=== PATIENT | female | born 1955 | race Caucasian/White ===

== ENCOUNTER 2016-03-14 09:31 | Inpatient (IN) | payer MEDICAID, OTHER ==
[2016-03-14] MEDS: NS 0.9% 1000 ML* 2,000 ML IV ONE ×5 (10:00→15:31)
[2016-03-14 10:20] LABS: Hematocrit 35 % (35-47); Mean Corpuscular HGB Conc 34 g/dl (31-36); Mean Corpuscular Hemoglobin 32 pg (27-31); Mean Corpuscular Volume 92 fL (80-97); Mean Platelet Volume 8 um3 (7.4-10.4); Red Blood Count 3.79 10^6/ul (4.0-5.4); Red Cell Distribution Width 14 % (10.5-15); White Blood Count 29.8 10^3/ul (3.5-10.8)
[2016-03-14 10:26] LABS: Add Diff/Slide Review? Slide Review Added; Comments Flag Yes
--- NOTE | 2016-03-14 10:38 | RAD ---
HISTORY: Shortness of breath COMPARISONS: None VIEWS: Single frontal view of the chest FINDINGS: CARDIOMEDIASTINAL SILHOUETTE: The cardiomediastinal silhouette is normal. SADIQ: The sadiq are normal. PLEURA: The costophrenic angles are sharp. No pleural abnormalities are noted. LUNG PARENCHYMA: The lungs are clear. ABDOMEN: The upper abdomen is clear. There is no subphrenic gas. BONES AND SOFT TISSUES: No bone or soft tissue abnormalities are noted. OTHER: None. IMPRESSION: NO ACTIVE CARDIOPULMONARY DISEASE.
[2016-03-14 10:39] LABS: Troponin I 0.13 ng/mL (<0.04)
[2016-03-14 10:40] LABS: Albumin 2.3 g/dL (3.2-5.2); BUN/Creatinine Ratio 30.5 (8-20); Calcium 7.9 mg/dL (8.6-10.3); EGFR African American 20.2 (>60); EGFR Non-African American 15.7 (>60); Potassium 3.7 mmol/L (3.5-5.0); Total Bilirubin 1.7 mg/dL (0.2-1.0); Total Protein 5.3 g/dL (6.4-8.9)
[2016-03-14] MEDS ORDERED: Piperac/Tazob 3.375 gm in NS* 3.375 GM/100 ML BAG IVPB ONE (10:42)
[2016-03-14] MEDS ORDERED: Aspirin EC TAB* 325 MG PO ONE (10:45)
[2016-03-14 10:47] LABS: Immature Granulocytes 19 % (0-9); Myelocytes % 1 % (0-1); Neutrophil % 77 % (38-83); Toxic Granulation 1+
--- NOTE | 2016-03-14 11:10 | ED ---
Lower Extremity - HPI Summary HPI Summary: Patient presents with right leg pain and swelling. 6 days ago she suffered an injury to the knee when she just bent down and felt a pop. She presented to [facility] where an x-ray was negative for bony abnormality, and she was referred to the orthopedics, who she is scheduled to see today at 11. She began using two newly prescribed medications she received a week ago from her PCP for "hot flashes and to sleep". She has been taking Effexor 150mg and 200mg of Trazadone at bedtime. She finds it hard to get up, so she hasn't really been moving much due to her knee and the medication. She has not been eating or drinking much since her boyfriend is out of town. Her mother became concerned for a blood clot when she checked on her today because her right leg is swollen from the groin through the foot, with pain. She feels mildly short of breath without CP, HARDY, N/ V/D or abdominal pain. No fever, chills, N/T. She is deaf and uses hearing aids at baseline. - History of Current Complaint Chief Complaint: EDExtremityLower Stated Complaint: RT KNEE PAIN Time Seen by Provider: 03/14/16 09:43 Hx Obtained From: Patient, Family/Crown And [employer] Technician Mechanism Of Injury: Fall From A Standing Position Onset of Pain: Immediate Onset/Duration: Days - 6 Severity Initially: Severe Severity Currently: Severe Pain Intensity: 10 Timing: Constant Location: Is Discrete @ - RLE Character Of Pain: Aching, Stiffness, Burning Associated Signs And Symptoms: Positive: Swelling, Knee Pain Aggravating Factor(s): Movement Alleviating Factor(s): Nothing Able to Bear Weight: No - Allergies/Home Medications Allergies/Adverse Reactions: Allergies Allergy/AdvReac Type Severity Reaction Status Date / Time No Known Allergies Allergy Verified 10/31/15 15:39 Home Medications: Home Medications Venlafaxine ER (NF) [Effexor ER (NF)] 150 mg PO DAILY 03/14/16 [History Confirmed 03/14/16] traZODone TAB* [Desyrel TAB*] 200 mg PO BEDTIME 03/14/16 [History Confirmed 02/16] PMH/Surg Hx/FS Hx/Imm Hx Musculoskeletal History: Denies: Hx Rheumatoid Arthritis, Hx Osteoporosis EENT History: Reports: Hx Deafness Psychiatric History: Reports: Hx Depression - Cancer History Hx Chemotherapy: No Hx Radiation Therapy: No - Surgical History Surgery Procedure, Year, and Place: , CHOLECYSTECTOMY Infectious Disease History: No Infectious Disease History: Denies: Traveled Outside the [place] in Last 30 Days - Family History Known Family History: Positive: None Family History: no known cardio-vascular issues in family - Social History Occupation: Unemployed Lives: With Family Alcohol Use: None Substance Use Type: Reports: None Hx Tobacco Use: No Smoking Status (MU): Never Smoked Tobacco Review of Systems Negative: Fever, Chills Negative: Sore Throat, Ear Ache Negative: Chest Pain Positive: Shortness Of Breath. Negative: Cough Negative: Abdominal Pain, Vomiting, Diarrhea, Nausea Positive: Myalgia, Edema - RLE Negative: Headache All Other Systems Reviewed And Are Negative: Yes Physical Exam Triage Information Reviewed: Yes Vital Signs On Initial Exam: Initial Vitals Temp Pulse Resp BP Pulse Ox 98.6 F 126 18 101/67 98 03/14/16 09:50 03/14/16 09:50 03/14/16 09:50 03/14/16 09:50 03/14/16 09:50 Vital Signs Reviewed: Yes Appearance: Positive: Well-Nourished, Ill-Appearing, Pain Distress Skin: Positive: Warm, Skin Color Reflects Adequate Perfusion, Dry, Tender - TTP right thigh and knee, Soft. Negative: Erythema @ Head/Face: Positive: Normal Head/Face Inspection Eyes: Positive: EOMI, JAKE, Conjunctiva Clear ENT: Negative: Hearing grossly normal - patient is deaf and uses hearing aids Neck: Positive: Supple, Nontender, No Lymphadenopathy Respiratory/Lung Sounds: Positive: Clear to Auscultation, Breath Sounds Present. Negative: Rales, Rhonchi, Wheezes Cardiovascular: Positive: Tachycardia. Negative: Pulses are Symmetrical in both Upper and Lower Extremities - Right femoral, PT and DP pulses diminshed but present Abdomen Description: Positive: Nontender, Soft. Negative: CVA Tenderness (R), CVA Tenderness (L) Bowel Sounds: Positive: Present Musculoskeletal: Positive: Limited @ - any movement of the RLE causes extreme pain, Pain @ - TTP right groin, thigh, and knee. Minimal tenderness of calf, ankle and foot., Edema Right - moderate edema from right groin distally to foot. Negative: Griselda Sign Left, Griselda Sign Right Neurological: Positive: Sensory/Motor Intact, Alert, Oriented to Person Place, Time, NV Bundle Intact Distally, Unable to Assess Gait Psychiatric: Positive: Affect/Mood Appropriate AVPU Assessment: Alert - patient seems drowsy but is not somnolent - [place] Coma Scale Coma Scale Total: 15 Diagnostics - Vital Signs Vital Signs Temp Pulse Resp BP Pulse Ox 03/14/16 10:41 98.6 F 125 16 119/59 100 03/14/16 10:08 98.6 F 130 16 107/56 99 03/14/16 09:50 98.6 F 126 18 101/67 98 - Laboratory Lab Results: Lab Results 03/14/16 03/14/16 03/14/16 Range/Units 10:00 10:00 10:00 WBC 29.8 H (3.5-10.8) 10^3/ul RBC 3.79 L (4.0-5.4) 10^6/ul Hgb 12.0 (12.0-16.0) g/dl Hct 35 (35-47) % MCV 92 (80-97) fL MCH 32 H (27-31) pg MCHC 34 (31-36) g/dl RDW 14 (10.5-15) % Plt Count 320 (150-450) 10^3/ul MPV 8 (7.4-10.4) um3 Immature Gran % (Auto) 19 H (0-9) % Neut % (Auto) 96.3 H (38-83) % Lymph % (Auto) 1.1 L (25-47) % Converse % (Auto) 1.5 (1-9) % Eos % (Auto) 0.9 (0-6) % Baso % (Auto) 0.2 (0-2) % Absolute Neuts (auto) 28.7 H (1.5-7.7) 10^3/ul Absolute Lymphs (auto) 0.3 L (1.0-4.8) 10^3/ul Absolute Monos (auto) 0.4 (0-0.8) 10^3/ul Absolute Eos (auto) 0.3 (0-0.6) 10^3/ul Absolute Basos (auto) 0.1 (0-0.2) 10^3/ul Absolute Nucleated RBC 0 10^3/ul Neutrophils % 77 (38-83) % Band Neutrophils % 18 H (0-8) % Monocytes % 4 (0-13) % Myelocytes % 1 (0-1) % Nucleated RBC % 0 Toxic Granulation 1+ Normal RBC Morphology Not Reportable D-Dimer, Quantitative 364 H (Less Than 230) ng/mL Sodium 129 L (133-145) mmol/L Potassium 3.7 (3.5-5.0) mmol/L Chloride 96 L (101-111) mmol/L Carbon Dioxide 20 L (22-32) mmol/L Anion Gap 13 H (2-11) mmol/L BUN 93 H (6-24) mg/dL Creatinine 3.05 H (0.51-0.95) mg/dL Est GFR ( Amer) 20.2 (>60) Est GFR (Non-Af Amer) 15.7 (>60) BUN/Creatinine Ratio 30.5 H (8-20) Glucose 107 H (70-100) mg/dL Lactic Acid (0.5-2.0) mmol/L Calcium 7.9 L (8.6-10.3) mg/dL Total Bilirubin 1.70 H (0.2-1.0) mg/dL AST 74 H (13-39) U/L ALT 55 H (7-52) U/L Alkaline Phosphatase 170 H (34-104) U/L Troponin I 0.13 H* (<0.04) ng/mL Total Protein 5.3 L (6.4-8.9) g/dL Albumin 2.3 L (3.2-5.2) g/dL Globulin 3.0 (2-4) g/dL Albumin/Globulin Ratio 0.8 L (1-3) 03/14/16 Range/Units 10:00 WBC (3.5-10.8) 10^3/ul RBC (4.0-5.4) 10^6/ul Hgb (12.0-16.0) g/dl Hct (35-47) % MCV (80-97) fL MCH (27-31) pg MCHC (31-36) g/dl RDW (10.5-15) % Plt Count (150-450) 10^3/ul MPV (7.4-10.4) um3 Immature Gran % (Auto) (0-9) % Neut % (Auto) (38-83) % Lymph % (Auto) (25-47) % Converse % (Auto) (1-9) % Eos % (Auto) (0-6) % Baso % (Auto) (0-2) % Absolute Neuts (auto) (1.5-7.7) 10^3/ul Absolute Lymphs (auto) (1.0-4.8) 10^3/ul Absolute Monos (auto) (0-0.8) 10^3/ul Absolute Eos (auto) (0-0.6) 10^3/ul Absolute Basos (auto) (0-0.2) 10^3/ul Absolute Nucleated RBC 10^3/ul Neutrophils % (38-83) % Band Neutrophils % (0-8) % Monocytes % (0-13) % Myelocytes % (0-1) % Nucleated RBC % Toxic Granulation Normal RBC Morphology D-Dimer, Quantitative (Less Than 230) ng/mL Sodium (133-145) mmol/L Potassium (3.5-5.0) mmol/L Chloride (101-111) mmol/L Carbon Dioxide (22-32) mmol/L Anion Gap (2-11) mmol/L BUN (6-24) mg/dL Creatinine (0.51-0.95) mg/dL Est GFR ( Amer) (>60) Est GFR (Non-Af Amer) (>60) BUN/Creatinine Ratio (8-20) Glucose (70-100) mg/dL Lactic Acid 1.9 (0.5-2.0) mmol/L Calcium (8.6-10.3) mg/dL Total Bilirubin (0.2-1.0) mg/dL AST (13-39) U/L ALT (7-52) U/L Alkaline Phosphatase (34-104) U/L Troponin I (<0.04) ng/mL Total Protein (6.4-8.9) g/dL Albumin (3.2-5.2) g/dL Globulin (2-4) g/dL Albumin/Globulin Ratio (1-3) Result Diagrams: 03/14/16 10:00 03/14/16 10:00 Lab Statement: Any lab studies that have been ordered have been reviewed, and results considered in the medical decision making process. - Radiology No standard instances Xray Interpretation: No Acute Changes Radiology Interpretation Completed By: Radiologist - Ultrasound No standard instances Ultrasound Interpretation: Positive (See Comments) - right popliteal vein and profunda femoris vein are noncompressible suggestive of nonocclusive thrombus, possibly chronic Ultrasound Interpretation Completed By: Radiologist - EKG No standard instances Cardiac Rate: Tachycardia EKG Rhythm: Sinus Rhythm ST Segment: Normal Ectopy: None Re-Evaluation - Re-Evaluation First Eval Re-Evaluation Time: 12:05 Change: Unchanged - Patient re-examined which reveals an area of redness on right inner/posterior groin and labia that is painful and swollen without injury. This was not visible on initial exam and was not mentioned a source of pain. She has not been sexually active for 1-2 weeks and has not suffered any truama. She does shave her pubis and groin but does not report any known ingrown hair. There is not a distinct "head" to the swelling and there is only mild erythema. She is non-tender over her right buttock, SI joint or iliac crest. Lower Extremity Course/Dx - Course Course Of Treatment: Patient's case was discussed with Dr. Van throughout her time in the emergency department. The hopitalist, Dr. Chavez, was called for consultation when the lab work returned askew. It was decided the hospitalist service would see the patient and a CT of the lower extremity was order. - Diagnoses Differential Diagnosis/HQI/PQRI: Positive: Arthritis, Bursitis, Cellulitis, Compartment Syndrome, DVT, Infection, Septic Arthritis, Sprain, Strain Provider Diagnoses: Swelling of right lower extremity - Physician Notifications Discussed Care of Patient With: Dr. Chavez, [facility] Time Discussed With Above Provider: 11:56 Instructed by Provider To: Admit As Inpatient Discharge - Discharge Plan Condition: Fair Disposition: ADMITTED TO [facility]
--- NOTE | 2016-03-14 11:36 | RAD ---
HISTORY: Pain and edema COMPARISONS: None relevant TECHNIQUE: Multiple transverse and longitudinal ultrasound images were obtained of the right lower extremity from the level of the common femoral vein inferiorly through to the infrapopliteal veins using grayscale, color Doppler, and spectral Doppler imaging with and without compression and with augmentation. Comparison images were obtained of the contralateral common femoral vein. FINDINGS: VEINS: The right popliteal vein and profunda femoris vein are partially compressible suggestive of nonocclusive, possibly chronic thrombus. The remainder of the venous system of the right lower extremity is compressible throughout its course, with normal flow on color Doppler imaging and normal response to augmentation on spectral Doppler imaging. SOFT TISSUES: There is a 4 x 0.7 x 2.2 cm fluid collection of the popliteal fossa OTHER FINDINGS: None. IMPRESSION: 1. THE RIGHT POPLITEAL VEIN AND PROFUNDA FEMORIS VEIN ARE NONCOMPRESSIBLE SUGGESTIVE OF NONOCCLUSIVE THROMBUS, POSSIBLY CHRONIC. 2. BATISTA'S CYST
--- NOTE | 2016-03-14 11:40 | RAD ---
Indication: Injury to RIGHT leg last week at the level of the knee. Now entire leg swollen. Redness at the RIGHT groin. Shortness of breath. Diminished femoral pulses. Comparison: RIGHT lower extremity venous ultrasound of the same date. Technique: RIGHT lower extremity arterial ultrasound from the common femoral artery proximally through the calf arteries. Report: Patent RIGHT common femoral, profunda femoral, proximal, mid, and distal segments of the superficial femoral, popliteal, tibioperoneal trunk, anterior tibial, posterior tibial, and peroneal arteries with triphasic waveforms and normal range peak systolic velocities throughout. No aneurysm, pseudoaneurysm, or loculated fluid collection evident at the RIGHT groin. IMPRESSION: Negative arterial ultrasound RIGHT lower extremity.
[2016-03-14] MEDS ORDERED: Vancomycin(*) 1,000 MG in NS 0.9% 250 ML* 250 ML IVPB ONE (12:27)
[2016-03-14] MEDS ORDERED: Ondansetron INJ* 2 MG/ML VIAL IV PRN (12:36)
[2016-03-14 12:49] LABS: C Reactive Protein 399.48 mg/L (< 5.00)
--- NOTE | 2016-03-14 13:09 | RAD ---
Indication: Right lower extremity pain and swelling, severe sepsis. CT of the abdomen and pelvis was performed without oral or IV contrast administration. Coronal and sagittal reconstructed images were obtained. Lung bases demonstrate no pleural fluid, nodules or masses. Heart is normal size without pericardial effusion. Liver is normal in size. No focal lesions or intrahepatic ductal dilatation is noted. Patient status post cholecystectomy. The pancreas demonstrates no mass or pancreatic ductal dilatation. The spleen is normal in size. No adrenal lesions are noted. The kidneys demonstrate no hydronephrosis. No retroperitoneal lymphadenopathy is noted. No dilated loops of bowel are noted. The colon is filled with stool. The urinary bladder is unremarkable. No retroperitoneal adenopathy is noted. No retroperitoneal hematoma is noted. There is enlargement of the right vastus lateralis muscle. Intramuscular hematoma is not excluded although the entire length is not There is fluid surrounding the right gluteus medius muscle. Inflammatory changes cannot totally be excluded however. Specifically the colon demonstrates no definite evidence of diverticulitis. IMPRESSION: ENLARGEMENT OF THE RIGHT VASTUS LATERALIS MUSCLE WITH FLUID SURROUNDING THE RIGHT GLUTEUS MUSCLES. INFLAMMATORY CHANGES OR INTRAMUSCULAR HEMATOMA SHOULD BE CONSIDERED. NO INTRA-ABDOMINAL MASSES ARE IDENTIFIED.
--- NOTE | 2016-03-14 13:19 | RAD ---
Indication: Right lower extremity swelling, redness and pain. CT of the lower extremity was obtained without contrast. Coronal and sagittal reconstructed images were obtained. There is fluid superficial to the gluteus medius muscle in the right flank. This extends into the vastus lateralis muscle and likely the vastus intermedius muscle. There is also enlargement of the left abductor brevis muscle. Fluid surrounds the gracilis muscle and the posterior thigh. This extends into the knee. Moderate-sized suprapatellar joint effusion is noted. The muscle appears to be enlarged with heterogeneous low density. This may represent hematoma although inflammatory changes are not excluded. No evidence of fascial air is noted to suggest necrotizing fasciitis. IMPRESSION: Enlargement with fluid surrounding the gluteus medius muscle. The vastus intermedius muscle and vastus lateralis muscle are enlarged with heterogeneous low density. Fluid is noted surrounding the gracilis muscle and the abductor muscles. Differential diagnosis includes intramuscular hematoma versus inflammatory changes. No evidence of fascial air is noted to suggest necrotizing fasciitis.
--- NOTE | 2016-03-14 13:31 | RAD ---
Indication: Sepsis. Single frontal view of the chest performed at 1319 hours was reviewed. Comparison is made with previous exam dated earlier the same day. No mediastinal shift is noted. Heart is of normal size and configuration. Lung maria appear clear. IMPRESSION: NO ACTIVE CARDIOPULMONARY DISEASE IS NOTED.
[2016-03-14] MEDS ORDERED: Acetaminophen TAB* 325 MG PO PRN (13:35)
[2016-03-14] MEDS ORDERED: CEFTAZIDIME 1 GM IVPB SCH ×2 (14:00)
[2016-03-14] MEDS ORDERED: Cefepime(*) 1 GM in NS 0.9% 50 ML* 50 ML IVPB SCH (14:00)
[2016-03-14] MEDS ORDERED: Morphine INJ* 4 MG/ML 1 ML CARPUJECT IV PRN (14:12)
[2016-03-14] MEDS ORDERED: Clindamycin 600 MG IVPREMIX(* 600 MG/50 ML SDV IV ONE (14:13)
--- NOTE | 2016-03-14 15:46 | TRS ---
DATE OF ADMISSION: 03/14/2016. DATE OF TRANSFER: 03/14/2016. ATTENDING PHYSICIAN: Dr. Telly Chavez * (dictation provided by Teressa Lechuga NP ). CHIEF COMPLAINT: Right lower extremity pain. HISTORY OF PRESENT ILLNESS: Ms. Contreras is a 60-year-old female with no significant past medical history other than being hard of hearing who presents today to the hospital with concern for altered mental status and pain in her right lower extremity. Per the report, Ms. Contreras was at work approximately six days ago when she squatted down and felt a tear in her leg. She thought that she had injured her knee. She had significant pain in the leg and ultimately went to [facility] where an x-ray was performed that showed no acute injury. In addition to this, the patient was recently started on Effexor and Trazodone for hot flashes and anxiety. Her doses were quite high at 150 mg p.o. daily for the Venlafaxine and Trazodone 200 mg p.o. at bedtime. The patient states that she was taking both of these medications at night to help her sleep. She reports that she has been sleeping much more than usual. She does not report any fevers. Her mother has been checking on her daily out of concern for the pain in her leg. She saw her last night and she seemed to be doing okay, and when she came in to visit her this morning, the patient was very lethargic and was very difficult to arouse and therefore she brought her to the emergency room for evaluation. In the emergency room, Ms. Contreras was significantly toxic. Her temperature is normal, her heart rate is running in the 130s, her O2 saturation is 94 percent on room air, her respiratory rate is running in the 20s. Laboratory values show a white blood cell count of 29.8 and the bandemia of 18. She has an acute kidney injury with a BUN of 93 and a creatinine of 3.05. Her troponin is 0.13. She has a C-reactive protein of 399.48 and a procalcitonin of 11.0. The patient was continuing to complain of right leg pain, most specifically in the knee; however, on evaluation it was noted that the patient has swelling throughout the right leg, but most specifically in the right upper thigh. The patient went on for a venous Doppler study and a lower extremity arterial duplex which failed to show any clot. When her labs showed severe sepsis, she went on for a lower extremity CT which showed the follow: "Enlargement with fluid surrounding the gluteus medius muscle. The vastus intermedius muscle and vastus lateralis muscle are enlarged with heterogeneous low density. Fluid is noted surrounding the gracilis muscle and the abductor muscles. Differential diagnosis includes intramuscular hematoma versus inflammatory changes. No evidence of fascial air is noted to suggest necrotizing fasciitis." Ms. Contreras was admitted to the Intensive Care Unit. She has received 4 liters of IV fluid and boluses continue. She was given Vancomycin, Zosyn, and Clindamycin. Blood cultures were drawn. I will note that her lactic acid in only 1.9. The case was reviewed with Dr. Michael from the [facility] and despite the fact that no necrotizing fasciitis or air is seen on the CT scan, there is significant concern for the severity of the patient's illness and multisystem organ failure. Our concern is that as we hydrate the patient, she will develop compartment syndrome in the right lower extremity and possibly necrotizing fasciitis. Patient would benefit from a higher level of care where surgical expertise would be available if required. This case has been reviewed with Dr. Sheffield, who is an [facility] at [facility] who will be accepting the patient in transfer now. At the time of transfer, Ms. Contreras is stable. Her blood pressure is 135/70 with a heart rate of 129, respiratory rate of 21, O2 saturation 94 percent on room air. She is fluids wide open and will be maintained on that through her transfer. DISPOSITION: To [facility]. Approximately 90 minutes were spent in the transfer of this patient and more than half that time spent with her and her family at the bedside reviewing the events leading up to this hospitalization, performing the physical examination and reviewing my plan of care. TERESSA LECHUGA NP CC: Dr. Alcantara * [id number]/[facility] #: [id number] MARTHA
[2016-03-14 17:37] LABS: Urine Bacteria 1+ (Absent); Urine Bilirubin Negative (Negative); Urine Glucose Negative (Negative); Urine Nitrite Negative (Negative)
[2016-03-14 17:48] VITALS: BP 107/49
[2016-03-15] MEDS ORDERED: Vancomycin Random Level* NOTE FOLLOW UP ONE (06:00)
--- NOTE | 2016-06-27 03:46 | HP ---
HOSPITAL MEDICINE HISTORY AND PHYSICAL: DATE OF ADMISSION: 03/14/16 ATTENDING PHYSICIAN: Dr. Flo Chavez * (dictation provided by Teressa Lechuga NP). CHIEF COMPLAINT: Right lower extremity pain. HISTORY OF PRESENT ILLNESS: Ms. Contreras is a 60-year-old female with no significant past medical history, who presented to the hospital on 03/14/16 with concern for right lower extremity pain. Per the report, Ms. Contreras was at work approximately 6 days ago when she squatted down and felt a tear in her right leg. She thought she had injured her knee. She had significant pain in the leg and ultimately, went to [facility] when an x-ray was performed that showed no acute injury. In addition to this, the patient was recently started on Effexor and trazodone for hot flashes and anxiety. Her doses were quite high at 150 mg p.o. daily for the venlafaxine and trazodone 200 mg p.o. bedtime. The patient states that she was taking both these medications at night to help her sleep. She reports that she has been sleeping much more than usual. She does not report any fevers. Her mother has been checking on her daily out of concern for the pain in her leg. She saw her last night. She seemed to be doing okay, but when she came to visit her this morning, the patient was very lethargic and difficult to arouse and therefore, she brought her to the emergency room for evaluation. In the emergency room, Ms. Contreras was significantly toxic. Her temperature is normal. Her heart rate is running into the 130s. Her O2 saturation is 94% on room air. Her respiratory rate is running in the 20s. Laboratory values show white blood cell count 29.8 with a bandemia of 18. She has an acute kidney injury with a BUN of 93 and a creatinine of 3.05. Her troponin is 0.13. She had a CRP of 399.48 and a procalcitonin of 11. The patient was continuing to complain of right leg pain, more specifically in the knee; however, on evaluation, it was noted that the patient had swelling throughout the right leg , more specifically in the right upper thigh. The patient had a venous Doppler study and a lower extremity arterial duplex which failed to show any clot. She had a lower extremity CT which showed "enlargement with fluid surrounding the gluteus medius muscle. The vastus intermedius muscle and the vastus lateralis muscle are enlarged with heterogeneous low density. Fluid is noted surrounding the gracilis muscle and the abductor muscles. Differential diagnosis includes intramuscular hematoma versus inflammatory changes. No evidence of fascial air is noted to suggest necrotizing fasciitis." PAST MEDICAL HISTORY: Left shoulder pain. PAST SURGICAL HISTORY: 1. . 2. Laparoscopic cholecystectomy. 3. Removal of cyst from her ovary. 4. Total abdominal hysterectomy. MEDICATIONS: 1. Trazodone p.r.n. 2. Venlafaxine p.r.n. ALLERGIES: No known drug allergies. FAMILY HISTORY: Positive for cervical and colon cancer in her mother. SOCIAL HISTORY: No report of alcohol, tobacco, or drug use. The patient lives alone. REVIEW OF SYSTEMS: Other than those mentioned above are all negative. A 14- point review was conducted. PHYSICAL EXAMINATION GENERAL: Ms. Contreras is lying in the bed. She appears drowsy, but she is oriented and arouses easily. VITAL SIGNS: Temperature on arrival 98.6, heart rate 126, respiratory rate 18, O2 saturation 98% on 2 L, blood pressure 101/67. LUNGS: Clear to auscultation bilaterally with no accessory muscle use and good aeration. HEART: S1, S2. No murmur, rub, or gallop, and regular. ABDOMEN: Soft, nontender with bowel sounds positive x4. EXTREMITIES: The patient has significant tenderness and erythema in her right thigh with limited range of motion. Left leg has no erythema or pain. NEURO: She is a bit drowsy, but again arouses easily. She answers all questions appropriately. She is oriented x3. She moves all extremities equally other than decreased movement on the right reported to be secondary to pain. There is no facial asymmetry or focal weakness. Extraocular movements are intact. SKIN: Intact. DIAGNOSTIC STUDIES/LAB DATA: WBC 29.8, hemoglobin 12.0, hematocrit 35, platelet count 320. D-dimer 364. Sodium 129, potassium 3.7, chloride 96, serum bicarbonate 20, BUN 93, creatinine 3.05, glucose 107. Troponin 0.13. CRP 399.48. Total bilirubin 1.7, AST 74, ALT 55, alk phos 170. Procalcitonin is 11. Urine shows 3+ leuk esterase, 3+ WBC's, 1+ bacteria. Chest x-ray shows no active cardiopulmonary disease. 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 The vastus intermedius muscle and vastus lateralis muscle are enlarged with heterogeneous low density. Fluid is noted surrounding the gracilis muscle and the abductor muscles. Differential diagnosis includes intramuscular hematoma versus inflammatory changes. No evidence of fascial air is noted to suggest necrotizing fasciitis." Abdomen and pelvis CT shows enlargement of the right vastus lateralis muscle with fluid surrounding the right gluteus muscle. Inflammatory changes or intramuscular hematoma should be considered. No intraabdominal masses are identified. Chest x-ray: "No active cardiopulmonary disease is identified." ASSESSMENT AND PLAN: Ms. Contreras is a 60-year-old female with no significant past medical history, who presented to the emergency room today with concern for significant right lower extremity pain, found to have severe sepsis. The patient will be admitted to the intensive care unit. She will receive multiple liters of IV fluids. She has received 4 L thus far and will continue with boluses. Vancomycin, Zosyn, and clindamycin have been ordered for antibiotic coverage. Blood cultures have been drawn. The case was discussed with Dr. Michael from [facility] and despite the fact that no necrotizing fasciitis or air is seen on the CT scan, there is significant concern for severity of the patient's illness and multisystem organ failure. Our concern is that as we rehydrate the patient, she will continue to develop compartment syndrome in the right lower extremity and possibly necrotizing fasciitis. I think that she would be best served by a higher level of care where surgical services would be available as needed. I will be calling shortly to find location for tertiary care for Ms. Contreras. In the meantime, she will be admitted to our intensive care unit for close monitoring and treatment pending transfer. DISPOSITION: To intensive care unit. TIME SPENT: Approximately 75 minutes was spent on the admission of this patient , more than half the time spent with her at the bedside reviewing the events leading up to this hospitalization, performing the physical examination, and reviewing the plan of care[place] [id number]/[facility] #: [id number] [facility] CENTERKeerthi
== END 2016-03-14 17:56 | disposition short-term general hospital (02) | DRG 720 ==
LOC: ED 09:31 → ICU 12:29
PROVIDERS: ADMIT Internal Medicine; ATTEND Internal Medicine
DX: A41.9 Sepsis, unspecified organism (principal); N17.9 Acute kidney failure, unspecified; F41.9 Anxiety disorder, unspecified; R65.20 Severe sepsis without septic shock; H91.90 Unspecified hearing loss, unspecified ear; F32.9 Major depressive disorder, single episode, unspecified; M79.81 Nontraumatic hematoma of soft tissue; M60.9 Myositis, unspecified
CPT/HCPCS: 36415; 71010; 71020; 74176; 80053; 81003; 81015; 82550; 83605; 84145; 84484; 85025; 85379; 86140; 87040; 87077; 87086; 87186; 93005; A9270-GY; J0713; J2270; J2543; J3370

== ENCOUNTER 2017-10-02 10:34 | Emergency (ER) | payer OTHER ==
[2017-10-02 11:40] VITALS: BP 139/69
--- NOTE | 2017-10-02 17:35 | ED ---
Throat Pain/Nasal Congestion - HPI Summary HPI Summary: Pt. is a 61 y.o female who presents to the ER for itchy, swollen eyes x 2-3 days. Pt. states she used a new mascara and she developed bilateral eye itching and swelling. Pt. states she tried taking an antihistamine with no improvement. She does not wear contact lenses. Associated symptoms of eye drainage. Symptoms are mild in severity. Touching and rubbing eyes makes symptoms worse. Nothing makes symptoms better. - History of Current Complaint Chief Complaint: EDEyeProblem Time Seen by Provider: 10/02/17 11:02 Hx Obtained From: Patient - Allergies/Home Medications Allergies/Adverse Reactions: Allergies Allergy/AdvReac Type Severity Reaction Status Date / Time No Known Allergies Allergy Verified 10/31/15 15:39 PMH/Surg Hx/FS Hx/Imm Hx Previously Healthy: Yes Musculoskeletal History: Denies: Hx Rheumatoid Arthritis, Hx Osteoporosis Sensory History: Reports: Hx Deafness Psychiatric History: Reports: Hx Depression - Cancer History Hx Chemotherapy: No Hx Radiation Therapy: No - Surgical History Surgery Procedure, Year, and Place: , CHOLECYSTECTOMY Hx Anesthesia Reactions: No Infectious Disease History: No Infectious Disease History: Denies: Traveled Outside the [place] in Last 30 Days - Family History Known Family History: Positive: None Family History: no known cardio-vascular issues in family - Social History Occupation: Employed Full-time Lives: With Family Alcohol Use: None Substance Use Type: Reports: None Hx Tobacco Use: No Smoking Status (MU): Never Smoked Tobacco Have You Smoked in the Last Year: No Review of Systems Positive: Drainage, Erythema All Other Systems Reviewed And Are Negative: Yes Physical Exam Triage Information Reviewed: Yes Vital Signs On Initial Exam: Initial Vitals Temp Pulse Resp BP Pulse Ox 98.2 F 93 17 151/92 99 10/02/17 10:37 10/02/17 10:37 10/02/17 10:37 10/02/17 10:37 10/02/17 10:37 Vital Signs Reviewed: Yes Appearance: Positive: Well-Appearing - Pt. sitting in chair in NAD. Anxious. Skin: Positive: Warm, Dry Head/Face: Positive: Normal Head/Face Inspection Eyes: Positive: Other: - Mild injection to bilateral conjunctiva. Mild erythema and edema to bilateral upper and lower eyelids. No pain with EOM movement. Anterior chambers clear. Neck: Positive: Supple Neurological: Positive: Normal, CN Intact II-III Psychiatric: Positive: Affect/Mood Appropriate Diagnostics - Vital Signs Vital Signs Temp Pulse Resp BP Pulse Ox 10/02/17 11:38 98 F 88 16 139/69 98 10/02/17 10:37 98.2 F 93 17 151/92 99 - Laboratory Lab Statement: Any lab studies that have been ordered have been reviewed, and results considered in the medical decision making process. EENT Course/Dx - Course Course Of Treatment: Pt. presenting for likely allergic reaction to new mascara. Recommend OTC allergy eye drops. Will also cover with polytrim. Advised warm compress. To avoid eye makeup until sxs resolve. Can take benadry for itching and swelling. To return to ER if symptoms change or worsen. Pt. understands and agrees with plan. - Differential Diagnoses Differential Diagnoses: Allergic Rhinitis, Cellulitis, Conjunctivitis - Diagnoses Provider Diagnoses: Allergic conjunctivitis Discharge - Sign-Out/Discharge Documenting (check all that apply): Patient Departure - Discharge Plan Condition: Good Disposition: HOME Prescriptions: Polymyx/Trimethoprim OPTH* [Polytrim OPHTH*] 1 drop BOTH EYES Q3H #1 btl Patient Education Materials: Conjunctivitis (ED) Referrals: Joey Alcantara MD [Primary Care Provider] - Additional Instructions: Go to the hospital pharmacy and buy Zaditor antihistamine eye drops Use antibiotic eye drop as directed Do not wear eye makeup until symptoms resolve Can take oral benadryl as directed for itching and swelling Apply warm compresses Return to ER if symptoms change or worsen - Billing Disposition and Condition Condition: GOOD Disposition: Home
== END 2017-10-02 11:38 | disposition home or self-care (01) ==
LOC: ED 10:34
DX: H10.13 Acute atopic conjunctivitis, bilateral (principal)
CPT/HCPCS: 99282

== ENCOUNTER 2018-05-18 18:01 | Emergency (ER) | payer OTHER ==
[2018-05-18] MEDS ORDERED: Tetan/Diph/Pertus SYR(Tdap)* 0.5 ML SYR(BOOSTRIX) use SYR IM ONE (18:47)
--- NOTE | 2018-05-18 18:49 | ED ---
Laceration/Wound HPI - HPI Summary HPI Summary: 62-year-old female presents with puncture wound to left arm. She states her tetanus is out of date. She has had not had tetanus since she was young. She has a history of sepsis. She is not diabetic. States she could cleaned out the area. She states that she was reaching up and she struck the nail into his left arm. Area is not actively bleeding. No other injury. - History of Current Complaint Stated Complaint: HAD NAIL IN LT ARM PER PT Time Seen by Provider: 05/18/18 18:40 Pain Intensity: 3 - Allergy/Home Medications Allergies/Adverse Reactions: Allergies Allergy/AdvReac Type Severity Reaction Status Date / Time No Known Allergies Allergy Verified 10/31/15 15:39 PMH/Surg Hx/FS Hx/Imm Hx Endocrine/Hematology History: Denies: Hx Anticoagulant Therapy Cardiovascular History: Denies: Hx Myocardial Infarction Musculoskeletal History: Denies: Hx Rheumatoid Arthritis, Hx Osteoporosis Sensory History: Reports: Hx Deafness Psychiatric History: Reports: Hx Depression - Cancer History Hx Chemotherapy: No Hx Radiation Therapy: No - Surgical History Surgery Procedure, Year, and Place: , CHOLECYSTECTOMY Hx Anesthesia Reactions: No Infectious Disease History: No Infectious Disease History: Denies: Traveled Outside the [place] in Last 30 Days - Family History Known Family History: Positive: None Family History: no known cardio-vascular issues in family - Social History Alcohol Use: Rare Substance Use Type: Reports: None Hx Tobacco Use: No Smoking Status (MU): Never Smoked Tobacco Have You Smoked in the Last Year: No Review of Systems Negative: Fever Negative: Chest Pain Negative: Shortness Of Breath Positive: Other - puncture left arm All Other Systems Reviewed And Are Negative: Yes Physical Exam Triage Information Reviewed: Yes Vital Signs On Initial Exam: Initial Vitals Temp Pulse Resp BP Pulse Ox 98.5 F 76 16 162/89 100 05/18/18 18:07 05/18/18 18:07 05/18/18 18:07 05/18/18 18:07 05/18/18 18:07 Vital Signs Reviewed: Yes Appearance: Positive: Well-Appearing Skin: Positive: Other - puncture wound to left forearm Head/Face: Positive: Normal Head/Face Inspection Eyes: Positive: Normal, Conjunctiva Clear ENT: Positive: Pharynx normal Respiratory/Lung Sounds: Positive: Clear to Auscultation, Breath Sounds Present Cardiovascular: Positive: Normal, RRR Musculoskeletal: Positive: Strength/ROM Intact - left arm, Other - good pulses Neurological: Positive: Normal Psychiatric: Positive: Normal Diagnostics - Vital Signs Vital Signs Temp Pulse Resp BP Pulse Ox 05/18/18 18:07 98.5 F 76 16 162/89 100 - Laboratory Lab Statement: Any lab studies that have been ordered have been reviewed, and results considered in the medical decision making process. Laceration Repair Course/Dx - Course Course Of Treatment: 62-year-old female presents with puncture wound to left arm. She states her tetanus is out of date. She has had not had tetanus since she was young. She has a history of sepsis. She is not diabetic. States she could cleaned out the area. She states that she was reaching up and she struck the nail into his left arm. Area is not actively bleeding. No other injury. On exam has a puncture to left arm. Cleaned area out. No signs of infection at this time. Gave tetanus. Told to keep the area clean. Warned signs of infection to return to ER. Patient understands agrees with plan. - Differential Dx Differental Diagnoses: Abrasion, Avulsion, Puncture Wound - Clinical Impression Provider Diagnoses: Puncture wound of left forearm Discharge - Sign-Out/Discharge Documenting (check all that apply): Patient Departure Patient Received Moderate/Deep Sedation with Procedure: No - Discharge Plan Condition: Good Disposition: HOME Patient Education Materials: Puncture Wound (ED) Referrals: Joey Alcantara MD [Primary Care Provider] - Additional Instructions: wash area with soap and water twice a day apply neosporin Watch for any signs of infection such as pus, spreading redness and return to ED if develop such or any new or worsening symptoms - Billing Disposition and Condition Condition: GOOD Disposition: Home
[2018-05-18 19:08] VITALS: BP 157/97
== END 2018-05-18 19:06 | disposition home or self-care (01) ==
LOC: ED 18:01
DX: S51.832A Puncture wound without foreign body of left forearm, initial encounter (principal); W45.0XXA Nail entering through skin, initial encounter; Y92.9 Unspecified place or not applicable
CPT/HCPCS: 90471; 90715; 99282

== ENCOUNTER 2018-06-25 11:30 | Emergency (ER) | payer OTHER ==
[2018-06-25 11:45] VITALS: BP 117/81
--- NOTE | 2018-06-25 12:10 | UC ---
Shoulder Pain HPI - HPI Summary HPI Summary: CHIEF COMPLAINT and HPI: This is a 62 year old female complaining of significant right shoulder pain. She states that she has a hx of bursitis, sub acromial, and that her doctor injects this bursa with cortisone. She is requesting an injection. 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 It has become more painful . NURSES NOTE REVIEWED. VITAL SIGNS REVIEWED. VISIT LIST and MEDICAL PROBLEM LIST REVIEWED. CURRENT MEDICATIONS and ALLERGIES REVIEWED. INFORMATION RELEVANT TO CURRENT COMPLAINT: hx of cochlear implant. Hypertension medication: none. - History of Current Complaint Chief Complaint: UCUpperExtremity Stated Complaint: SHOULDER INJURY Time Seen by Provider: 06/25/18 11:58 Pain Intensity: 7 - Allergies/Home Medications Allergies/Adverse Reactions: Allergies Allergy/AdvReac Type Severity Reaction Status Date / Time No Known Allergies Allergy Verified 06/25/18 11:45 PMH/Surg Hx/FS Hx/Imm Hx - Additional Past Medical History Additional PMH: PAST MEDICAL HISTORY is significantly positive for: cochlear implant. FAMILY HISTORY is positive for: hypertension. SOCIAL HISTORY is significant for non- smoker, lives by herself, and works as a landloard. Other History Of: Negative For: Anticoagulant Therapy - Surgical History Surgical History: Yes Surgery Procedure, Year, and Place: , CHOLECYSTECTOMY - Family History Known Family History: Positive: None Family History: no known cardio-vascular issues in family - Social History Alcohol Use: Rare Substance Use Type: None Smoking Status (MU): Never Smoked Tobacco Have You Smoked in the Last Year: No - Immunization History Most Recent Influenza Vaccination: 2016 Most Recent Tetanus Shot: never Most Recent Pneumonia Vaccination: never Review of Systems All Other Systems Reviewed And Are Negative: Yes Constitutional: Negative: Fever Skin: Negative: Rash Eyes: Positive: Negative Respiratory: Positive: Negative. Negative: Shortness Of Breath Cardiovascular: Positive: Negative. Negative: Palpitations Gastrointestinal: Positive: Negative. Negative: Abdominal Pain Musculoskeletal: Positive: Arthralgia, Decreased ROM - pain right shoulder; limited ROM to 90 degress in all directions, Myalgia Neurological: Positive: Negative Is Patient Immunocompromised?: No Physical Exam Triage Information Reviewed: Yes Appearance: Well-Appearing Vital Signs: Initial Vital Signs Temp 98.9 F 06/25/18 11:40 Pulse 79 06/25/18 11:40 Resp 18 06/25/18 11:40 BP 117/81 06/25/18 11:40 Pulse Ox 98 06/25/18 11:40 Vital Signs Reviewed: Yes Eye Exam: Normal ENT Exam: Normal Dental Exam: Normal Neck exam: Normal Neck: Positive: 1 Respiratory Exam: Normal Respiratory: Positive: Chest non-tender, Lungs clear Cardiovascular Exam: Normal Cardiovascular: Positive: RRR, No Murmur Abdominal Exam: Normal Abdomen Description: Positive: Nontender, No Organomegaly Musculoskeletal Exam: Normal Musculoskeletal: Positive: Strength Limited @, ROM Limited @ - subacromial pain with palpation and movement; limted ROM to 90 degress because of pain. Neurological Exam: Normal Psychological Exam: Normal Skin Exam: Normal Shoulder Course/Dx - Course Course Of Treatment: . This is a 62 year old female complaining of significant right shoulder pain. She states that she has a hx of bursitis, sub acromial, and that her doctor injects this bursa with cortisone. She is requesting an injection. 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 It has become more painful. I explained to the patient that we couldn't inject her at the [facility]. I also called the ED and no one there was willing to do the procedure. Patient will [facility] or follow up with her physician. MEDICAL DECISION MAKING: (Differential Diagnosis; Tests; Final Diagnosis): Differential includes calcific tendonitis and bursitis. PLAN: at patient's request, i prescribed Vicodin. Reference #: [id number]. MEDICATIONS REVIEWED. - Differential Dx/Diagnosis Differential Diagnosis/HQI/PQRI: Bursitis, Contusion, Tendonitis Provider Diagnosis: Bursitis Discharge - Sign-Out/Discharge Documenting (check all that apply): Patient Departure All imaging exams completed and their final reports reviewed: No Studies - Discharge Plan Condition: Stable Disposition: HOME Prescriptions: HYDROcodone/ACETAMIN 5-325 MG* [[place] 5-325 TAB*] 1 tab PO Q6H #6 tab MDD 4 Patient Education Materials: Shoulder Bursitis (ED) Referrals: Aguila Olmos [Medical Doctor] - Joey Alcantara MD [Primary Care Provider] - Additional Instructions: WE DISCUSSED: PLEASE SEEK CARE AT THE EMERGENCY DEPARTMENT IF SYMPTOMS WORSEN OR IF NEW SYMPTOMS DEVELOP. FOLLOW UP WITH YOUR PRIMARY CARE PHYSICIAN IF CONDITION CONTINUES BEYOND 3 DAYS WITHOUT IMPROVEMENT. We are open from 7 a.m. to 10 p.m. Call us with any questions or concerns. YOUR DIAGNOSIS IS: bursitis right shoulder YOUR PRESCRIPTION RECOMMENDATION IS: Vicodin # 6; also take ibuprofen 400-600 mg. OTHER INSTRUCTIONS: When you are finished with the Vicodin, you can take the combination below. You can also try over the counter, lidocaine cream. Call Dr. Olmos for possible injection. For pain: Ibuprofen (Motrin and other brand names) 400-600mg PLUS acetaminophen (Tylenol and other brand names) 500mg - 1000mg every 8 hours. Maximum is 3 doses a day. If this dosage is required for more than 5 days, you should re-check with your doctor. The combination of these two over-the- counter medications can be more effective than each one taken alone. Please check with the pharmacist if you have questions about your allergies to these medications. - Billing Disposition and Condition Condition: STABLE Disposition: Home
== END 2018-06-25 12:55 | disposition home or self-care (01) ==
LOC: UCEAST 11:30
DX: M75.51 Bursitis of right shoulder (principal)
CPT/HCPCS: 99212; G0463